=== PATIENT | male | born 1965 | race Caucasian/White ===

== ENCOUNTER 2023-06-29 15:54 | Outpatient (RCR) | payer OTHER, SELFPAY | END 2023-07-07 11:33 | disposition home or self-care (01) | LOC: PT 15:54 | PROVIDERS: PCP Family Medicine; Visit Provider Family Medicine | DX: M54.16 Radiculopathy, lumbar region (principal); M48.061 Spinal stenosis, lumbar region without neurogenic claudication | CPT/HCPCS: 97110; 97161 ==